=== PATIENT | female | born 1990 | race Caucasian/White ===

== ENCOUNTER → 2018-03-14 10:00 | Outpatient (CLI) | payer MEDICARE, MEDICAID, SELFPAY | PROVIDERS: PCP Family Medicine; Visit Provider Psychiatry & Neurology Neurology | DX: I47.1 Supraventricular tachycardia (principal); R51 Headache; Q28.2 Arteriovenous malformation of cerebral vessels; R68.2 Dry mouth, unspecified | CPT/HCPCS: 99213 ==

== ENCOUNTER 2018-03-24 11:37 | Outpatient (CLI) | payer MEDICARE, MEDICAID, SELFPAY | END 2018-03-24 11:38 | PROVIDERS: PCP Family Medicine; Visit Provider Student in an Organized Health Care Education/Training Program | DX: M25.561 Pain in right knee (principal); M23.92 Unspecified internal derangement of left knee | CPT/HCPCS: 20610; 99213; J7325 ==

== ENCOUNTER → 2018-09-11 09:36 | Outpatient (BNVA) | payer MEDICARE, MEDICAID, SELFPAY | PROVIDERS: PCP Family Medicine; Visit Provider Psychiatry & Neurology Neurology | DX: Q28.2 Arteriovenous malformation of cerebral vessels (principal); G43.009 Migraine without aura, not intractable, without status migrainosus; R27.0 Ataxia, unspecified; R47.9 Unspecified speech disturbances | CPT/HCPCS: 99214 ==

== ENCOUNTER → 2018-10-06 08:44 | Outpatient (BNVA) | payer MEDICARE, MEDICAID, SELFPAY | PROVIDERS: PCP Family Medicine; Visit Provider Student in an Organized Health Care Education/Training Program | DX: M25.561 Pain in right knee (principal); G89.29 Other chronic pain | CPT/HCPCS: 99213 ==

== ENCOUNTER 2019-04-20 02:39 | Outpatient (CLI) | payer MEDICARE, MEDICAID, SELFPAY ==
[2019-04-20 11:30] LABS: Calculated LDL 104 mg/dL; Cholesterol 183 mg/dL (50-200); Glucose 91 mg/dL (70-100); HDL Cholesterol 64 mg/dL (40-60); Triglyceride 75 mg/dL (30-150)
== END 2019-04-20 02:59 ==
PROVIDERS: PCP Family Medicine; Visit Provider Family Medicine
DX: K81.9 Cholecystitis, unspecified (principal); I61.9 Nontraumatic intracerebral hemorrhage, unspecified
CPT/HCPCS: 36415; 80061; 82947

== ENCOUNTER → 2020-05-26 10:11 | Outpatient (BNVA) | payer MEDICARE, MEDICAID, SELFPAY | PROVIDERS: PCP Family Medicine; Referring Provider Family Medicine; Visit Provider Student in an Organized Health Care Education/Training Program | DX: M25.561 Pain in right knee (principal); G89.29 Other chronic pain | CPT/HCPCS: 20610; 99212; J7325 ==

== ENCOUNTER 2020-06-06 01:48 | Outpatient (CLI) | payer MEDICARE, MEDICAID, SELFPAY | END 2020-06-06 02:08 | PROVIDERS: PCP Family Medicine; Visit Provider Family Medicine | DX: E83.42 Hypomagnesemia (principal) | CPT/HCPCS: 36415; 83735 ==

== ENCOUNTER 2023-05-17 02:54 | Outpatient (CLI) | payer MEDICARE, MEDICAID, SELFPAY ==
[2023-05-17 13:48] LABS: Vitamin B12 741 pg/mL (193-986)
== END 2023-05-17 02:55 | disposition home or self-care (01) ==
LOC: LOS 02:54
PROVIDERS: PCP Family Medicine; Visit Provider Family Medicine
DX: D64.9 Anemia, unspecified (principal)
CPT/HCPCS: 36415; 82607